=== PATIENT | male | born 1980 | race Caucasian/White ===

== ENCOUNTER 2021-02-17 03:46 | Inpatient (IN) | payer OTHER ==
[~2021-02-17] VITALS: Ht 185.4 cm; Wt 89.4 kg
[2021-02-17 03:42] VITALS: BP 107/66
[2021-02-17] MEDS ORDERED: HEPARIN 25,000UTS/250ML PREMIX 250 ML IV PRN (04:30)
[2021-02-17] MEDS ORDERED: HEPARIN for IV BOLUS 10,000 UNIT/10 ML VIAL. IV PRN (04:30)
[2021-02-17] MEDS ORDERED: ASPI-630 PO (04:58)
[2021-02-17] MEDS ORDERED: ANTI-COAG MONITOR BY PHARMACY. MC PRN (05:00)
[2021-02-17 07:35] LABS: BASO % 1 % (0-3); EOS # 0.1 x10^3/uL (0.0-0.7); EOS % 2 % (0-3); HEMATOCRIT 38.7 % (39.0-53.0); HEMOGLOBIN 13.4 g/dL (13.0-17.5); LYMPH # 2.2 x10^3/uL (1.0-4.8); LYMPH % 39 % (24-48); MEAN CORPUSCULAR HEMOGLOBIN 32 pg (25-35); MEAN CORPUSCULAR HGB CONC 35 g/dL (31-37); MEAN CORPUSCULAR VOLUME 93 fL (79-100); MONO # 0.4 x10^3/uL (0.0-1.1); MONO % 8 % (0-9); NEUT # 2.9 x10^3/uL (1.8-7.7); NEUT % 51 % (31-73); PLATELET COUNT 199 x10^3/uL (140-400); RED BLOOD COUNT 4.15 x10^6/uL (4.30-5.70); RED CELL DISTRIBUTION WIDTH 13.8 % (11.5-14.5); WHITE BLOOD COUNT 5.6 x10^3/uL (4.0-11.0)
[2021-02-17 07:50] VITALS: BP 110/69
[2021-02-17 07:58] LABS: ALBUMIN 3.5 g/dL (3.4-5.0); ALBUMIN/GLOBULIN RATIO 1.6 (1.0-1.7); CALCIUM 8.4 mg/dL (8.5-10.1); CREATININE 0.8 mg/dL (0.7-1.3); GFR 107.1; POTASSIUM 3.9 mmol/L (3.5-5.1); TOTAL BILIRUBIN 0.2 mg/dL (0.2-1.0); TOTAL PROTEIN 5.7 g/dL (6.4-8.2)
[2021-02-17 08:00] LABS: CHOLESTEROL/HDL RATIO 3.3
[2021-02-17] MEDS ORDERED: ASPIRIN CHEWABLE 81 MG TABLET. PO SCH (09:00)
--- NOTE | 2021-02-17 10:07 | HP ---
ADMIT DATE: 02/17/2021 HISTORY OF PRESENT ILLNESS: The patient is a 40-year-old male patient who presented to the Emergency Room of [facility] with a complaint of palpitation. He stated it has been going on for the last 2 days, as he woke up in the morning with feeling of racing heart and skipped beats. He also complained of chest discomfort with some shortness of breath, but denied actual chest pain. Denied any nausea, vomiting, diaphoresis. He denied any recent trauma, travel, illnesses, fevers, dysuria, hematuria, blood in stool or diarrhea. 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 According to him, he was diagnosed with atrial fibrillation back in 2016. At that time, he refused to go on any blood thinners at the [place] and has been taking aspirin initially intermittently, although recently has been taking it on a regular basis. He had also myocardial infarction in 2018, for which he underwent a cardiac catheterization at [facility] in [place]. He said that, although there was narrowing, no stents were deployed at that time. PAST SURGICAL HISTORY: Significant for tonsillectomy, left heart catheterization and wisdom teeth extraction. ALLERGIES: He has no known drug allergies. MEDICATIONS: He is currently on only aspirin. FAMILY HISTORY: He has 2 brothers and 3 sisters, all older, but does not know much about them. His father at age of 72 because of hypertension and myocardial infarction. His mother at the age of 68 due to throat cancer. SOCIAL HISTORY: He is engaged. He has 3 daughters from a previous marriage. He smokes a pack a day, drinks alcohol occasionally and also smokes marijuana. 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 REVIEW OF SYSTEMS: As per history of present illness. On arrival to the Emergency Room, the patient looked well and was clearly in no apparent respiratory distress. According to the ER physician, the patient was in atrial fibrillation with rapid ventricular response. Apparently, he was given a loading dose of diltiazem and started on heparin and was transferred to [facility] for further evaluation and treatment. PAST MEDICAL HISTORY: Significant for paroxysmal atrial fibrillation, coronary artery disease, status post myocardial infarction. LABORATORY DATA: His lab work, done at [facility], showed that his white cell count was 7700, hemoglobin 14.6, hematocrit 42, MCV 94 and platelet count 213,000. Serum sodium 147, potassium 3.4, chloride 110, bicarbonate 27, anion gap of 10, BUN 14, creatinine 1.2. Estimated GFR was 67 mL per minute. His glucose was 164, calcium was 9, magnesium was 1.9. Troponin was less than 0.017. His prothrombin time, INR, aPTT and D-dimer are all normal. His chest x-ray showed that the cardiac silhouette is unremarkable. The lungs are clear bilaterally. The costophrenic sulci are clear and well demarcated. ASSESSMENT: 1. In summary, this is a 40-year-old male patient with a history of paroxysmal atrial fibrillation. 2. Coronary artery disease, status post myocardial infarction, although no stents were deployed on his cardiac catheterization in 2018 in [place], [place]. I will check his fasting lipid profile and TSH and also another set of cardiac enzyme and we will decide the further management accordingly. PLAN: To continue with the heparin drip, continue with the aspirin. We have consulted the Cardiology team and will decide further management accordingly. ANATOLIY DR: Demetrio TID: [id number]
[2021-02-17 10:56] VITALS: BP 100/74
--- NOTE | 2021-02-17 12:17 | NUR ---
SS following for discharge planning. SS reviewed pt chart and discussed with pt RN. Pt is from home with family and is currently on room air. Cardiology following. Heparin drip. ECHO today. SS will continue to follow for discharge planning.
--- NOTE | 2021-02-17 12:28 | PDOC2 ---
EBENEZER WHITE FAST FOOD SHIFT SUPERVISOR 02/17/21 1228: CARDIAC CONSULT DATE OF CONSULT Date of Consult DATE: 02/17/21 TIME: 12:00 REASON FOR CONSULT Reason for Consult: AFIB RVR REFERRING PHYSICIAN Referring Physician: Jose Ramon SOURCE Source: Chart review, Patient HISTORY OF PRESENT ILLNESS HISTORY OF PRESENT ILLNESS This is a pleasant 40 yo male admitted for complains of palpitations. Initially he was at [facility] and transferred here for further workup up. He was having palpitations at home and at times feeling dizzy. He eventually had some tightness to his neck area as well but no nause or vomiting. He does have skipping beats and intermittent palpitations but yesterday it was sutained. No passing out, nor hx of VTE and no hx of CVA nor any bleeding issues. He takes ASA but denies taking any rate controlling agents. He does have hx of AFIB in 2016 and was discussed about ablation but decided not to pursue. He then was told he had some blockage in his coronary arteries mild in 2018 and no stents or PTCA was done. Denies any HTN, HLP. No recreational drug use but does smoke tobacco. No prior covid-19 nor exposure and has not had a vaccines. He is from [place] and recently moved here for job and to be with his children last yr. PAST MEDICAL HISTORY Cardiovascular: AFIB, CAD Pulmonary: Pneumonia CENTRAL NERVOUS SYSTEM: Other (No pertinent history) GI: GERD Heme/Onc: No pertinent hx Hepatobiliary: No pertinent hx Psych: No pertinent hx Musculoskeletal: Osteoarthritis Rheumatologic: No pertinent hx Infectious disease: No pertinent hx ENT: No pertinent hx Renal/: No pertinent hx Endocrine: No pertinent hx Dermatology: No pertinent hx PAST SURGICAL HISTORY Past Surgical History: Tonsillectomy, Other (teeth extraction) FAMILY HISTORY Family History: Coronary Artery Disease (father at 35), Other (rAAA/father) SOCIAL HISTORY Smoke: 1 pack per day ALCOHOL: occassional Drugs: None Lives: with Family CURRENT MEDICATIONS CURRENT MEDICATIONS Current Medications Medications (Trade) Dose Ordered Sig/Amanda Route PRN Reason Start Time Stop Time Status Last Admin Dose Admin Heparin Sodium/ Dextrose 250 ml @ 0 mls/hr CONT PRN IV PER PROTOCOL 02/17/21 04:30 02/17/21 06:25 Info (Anti-Coagulation Monitoring By Pharmacy) 1 each PRN DAILY PRN MC PER PROTOCOL 02/17/21 05:00 02/17/21 05:23 ALLERGIES ALLERGIES: Coded Allergies: No Known Drug Allergies (Unverified , 02/17/21) PT VERBALIZED NO KNOWN DRUG ALLERGIES ROS Review of System 14 point ROS evaluated with pertinent positives noted per HPI PHYSICAL EXAM General: Alert, Oriented X3, Cooperative, No acute distress HEENT: Atraumatic, Mucous membr. moist/pink Lungs: Clear to auscultation, Normal air movement Heart: Regular rate (SR), Normal S1, Normal S2, No murmurs Abdomen: Soft, No tenderness Extremities: No cyanosis, No edema Skin: No breakdown, No significant lesion Neuro: Normal speech, Sensation intact Psych/Mental Status: Mental status NL, Mood NL MUSCULOSKELETAL: Osteoarthritic changes both hands VITALS/I&O VITALS/I&O: Vital Signs Date Time Temp Pulse Resp B/P (MAP) Pulse Ox O2 Delivery O2 Flow Rate FiO2 02/17/21 10:56 98.4 58 18 100/74 (83) 98 Room Air 98.4 I & O 02/16/21 02/16/21 02/17/21 15:00 23:00 07:00 Intake Total 0 ml Balance 0 ml LABS Lab: Laboratory Tests Test 02/17/21 07:10 White Blood Count 5.6 x10^3/uL (4.0-11.0) Red Blood Count 4.15 x10^6/uL (4.30-5.70) L Hemoglobin 13.4 g/dL (13.0-17.5) Hematocrit 38.7 % (39.0-53.0) L Mean Corpuscular Volume 93 fL (79-100) Mean Corpuscular Hemoglobin 32 pg (25-35) Mean Corpuscular Hemoglobin Concent 35 g/dL (31-37) Red Cell Distribution Width 13.8 % (11.5-14.5) Platelet Count 199 x10^3/uL (140-400) Neutrophils (%) (Auto) 51 % (31-73) Lymphocytes (%) (Auto) 39 % (24-48) Monocytes (%) (Auto) 8 % (0-9) Eosinophils (%) (Auto) 2 % (0-3) Basophils (%) (Auto) 1 % (0-3) Neutrophils # (Auto) 2.9 x10^3/uL (1.8-7.7) Lymphocytes # (Auto) 2.2 x10^3/uL (1.0-4.8) Monocytes # (Auto) 0.4 x10^3/uL (0.0-1.1) Eosinophils # (Auto) 0.1 x10^3/uL (0.0-0.7) Basophils # (Auto) 0.0 x10^3/uL (0.0-0.2) Heparin Anti-Xa Act, Unfractionated 0.79 IU/mL (0.30-0.70) H Sodium Level 150 mmol/L (136-145) H Potassium Level 3.9 mmol/L (3.5-5.1) Chloride Level 113 mmol/L (98-107) H Carbon Dioxide Level 29 mmol/L (21-32) Anion Gap 8 (6-14) Blood Urea Nitrogen 15 mg/dL (8-26) Creatinine 0.8 mg/dL (0.7-1.3) Estimated GFR (Cockcroft-Gault) 107.1 BUN/Creatinine Ratio 19 (6-20) Glucose Level 99 mg/dL (70-99) Calcium Level 8.4 mg/dL (8.5-10.1) L Total Bilirubin 0.2 mg/dL (0.2-1.0) Aspartate Amino Transferase (AST) 18 U/L (15-37) Alanine Aminotransferase (ALT) 20 U/L (16-63) Alkaline Phosphatase 50 U/L (46-116) Troponin I Quantitative < 0.017 ng/mL (0.000-0.055) Total Protein 5.7 g/dL (6.4-8.2) L Albumin 3.5 g/dL (3.4-5.0) Albumin/Globulin Ratio 1.6 (1.0-1.7) Triglycerides Level 58 mg/dL (0-150) Cholesterol Level 147 mg/dL (0-200) LDL Cholesterol, Calculated 91 mg/dL (0-100) VLDL Cholesterol, Calculated 12 mg/dL (0-40) Non-HDL Cholesterol Calculated 103 mg/dL (0-129) HDL Cholesterol 44 mg/dL (40-60) Cholesterol/HDL Ratio 3.3 Thyroid Stimulating Hormone (TSH) 1.601 uIU/mL (0.358-3.74) Laboratory Tests 02/17/21 07:10 Laboratory Tests 02/17/21 07:10 ASSESSMENT/PLAN ASSESSMENT/PLAN 1. AFIB RVR; paroxysmal by hx. Converted to SR. 2. Tobaccoism 3. CAD: no prior PCI 4. Family hx of premature CAD and AAA Recommendations 1. ASA. DC heparin. [id number] is 1. ASA vs eliquis pending TTE result 2. TSH 3. Start on statin. Start on low dose toprol and note BP response 4. MCOT to note burden and guide further therapy 5. Will arrange for outpt ischemic w/u 6. He will also need future abd sono given his family hx of AAA 7. Establish cardiology follow up and will provide referral for MERLYN HERNANDEZ MD 02/17/21 1803: CARDIAC CONSULT ASSESSMENT/PLAN ASSESSMENT/PLAN The patient was seen and interviewed as well as examined at the bedside. The chart was reviewed. The case was discussed. Agree with the plan of care. EBENEZER WHITE APRN Feb 17, 2021 12:28 MERLYN STALEY MD Feb 17, 2021 18:03
[2021-02-17] MEDS ORDERED: METO-239 PO (14:32)
[2021-02-17] MEDS ORDERED: ATOR10TA60 PO (14:32)
[2021-02-17] MEDS ORDERED: ASPIRIN ENTERIC COATED 325 MG TABLET.DR. PO SCH (15:00)
[2021-02-17] MEDS ORDERED: METOPROLOL SUCC 24HR ER 25 MG TAB.ER.24H. PO SCH (15:00)
[2021-02-17 15:40] VITALS: BP 100/74
[2021-02-17] MEDS ORDERED: ASPI325T8 PO (15:45)
--- NOTE | 2021-02-17 16:00 | NUR ---
DISCHARGE INSTRUCTIONS GIVEN, QUESTIONS AND CONCERNS ANSWERED, PATIENT VERBALIZED UNDERSTANDING OF DISCHARGE INFORMATION INCLUDING TAKING ALL MEDICATIONS INSTRUCTED AND FOLLOWING UP WITH HIS PRIMARY PROVIDER AND DR. STALEY INSTRUCTED, EVENT MONITOR APPLIED TO PATIENTS' LEFT UPPER CHEST PRIOR TO DISCHARGE PER CHARGE NURSE ON THE UNIT, PATIENT ENCOURAGED TO VOICE ANY QUESTIONS/CONCERNS, PATIENT DENIED HE HAS STATED THAT HE HAS HAD TO USE EVENT MONITORS BEFORE.
--- NOTE | 2021-02-17 16:50 | NUR ---
PATIENT LEAVES THE UNIT PER W/C AND ALONGSIDE HIS SIGNIFICANT OTHER, EMOTIONAL SUPPORT GIVEN, FOLLOW UP APPOINTMENTS ENCOURAGED.
[2021-02-17] MEDS ORDERED: ATORVASTATIN CALCIUM 10 MG TABLET. PO SCH (21:00)
--- NOTE | 2021-02-18 08:36 | CARD ---
MR#: [id number] Date of Study: 02/17/2021 Ordering Physician: EBENEZER WHITE, Referring Physician: EBENEZER WHITE Tech: Grace Hernandez [facility] APPROVED REPORT EXAM: Two-dimensional and M-mode echocardiogram with Doppler and color Doppler. Other Information Quality : AverageHR: 86bpm Rhythm : NSR INDICATION Cardiac Disease: CAD Chest Pain 2D DIMENSIONS RVDd4.2 (2.9-3.5cm)Left Atrium(2D)3.5 (1.6-4.0cm) IVSd1.1 (0.7-1.1cm)Aortic Root(2D)3.3 (2.0-3.7cm) LVDd4.5 (3.9-5.9cm)LVOT Diameter2.5 (1.8-2.4cm) PWd1.0 (0.7-1.1cm)LVDs3.4 (2.5-4.0cm) FS (%) 25.2 %SV45.7 ml LVEF(%)49.9 (>50%) Aortic Valve AoV Peak Bin.112.8cm/sAoV VTI23.9cm AO Peak GR.5.1mmHgLVOT Peak Bin.105.6cm/s AO Mean GR.3mmHgAVA (VMAX)4.57cm2 Mitral Valve MV E Rkibgapj23.4cm/sMV DECEL [id number] MV A Ebpsepie48.4cm/sE/A Ratio1.5 Pulmonary Valve PV Peak Hsdsgvvj871.3cm/s Tricuspid Valve TR P. Badjxtml147ch/sTR Peak Gr.13mmHg LEFT VENTRICLE The left ventricle is normal size. There is normal left ventricular wall thickness. The left ventricu lar systolic function is normal and the ejection fraction is within normal range. Estimated ejection fraction 60%. There is normal LV segmental wall motion. Tissue Doppler imaging reveals mild left vent ricular diastolic dysfunction. RIGHT VENTRICLE The right ventricle is normal size. There is normal right ventricular wall thickness. The right ventr icular systolic function is normal. ATRIA The left atrium size is normal. The right atrium size is normal. The interatrial septum is intact wit h no evidence for an atrial septal defect or patent foramen ovale as noted on 2-D or Doppler imaging. AORTIC VALVE The aortic valve is normal in structure and function. Doppler and Color Flow revealed no significant aortic regurgitation. There is no significant aortic valvular stenosis. MITRAL VALVE The mitral valve is normal in structure and function. There is no evidence of mitral valve prolapse. There is no mitral valve stenosis. Doppler and Color-flow revealed mild mitral regurgitation. TRICUSPID VALVE The tricuspid valve is normal in structure and function. Doppler and Color Flow revealed trace tricus pid regurgitation. Estimated ejejction fraction 20 mmHg. There is no tricuspid valve stenosis. PULMONIC VALVE Doppler and Color Flow revealed no pulmonic valvular regurgitation. There is no pulmonic valvular nuria nosis. GREAT VESSELS The aortic root is normal in size. The ascending aorta is normal in size. The IVC is normal in size a nd collapses >50% with inspiration. PERICARDIAL EFFUSION There is no evidence of significant pericardial effusion. Critical Notification Critical Value: No <Conclusion> The left ventricular systolic function is normal and the ejection fraction is within normal range. E stimated ejection fraction 60%. There is normal LV segmental wall motion. Signed by : Mo Carranza, Electronically Approved : 02/18/2021 08:36:18
== END 2021-02-17 16:50 | disposition home or self-care (01) | DRG 310 ==
LOC: 2 NORTH 03:46
PROVIDERS: ADMIT Internal Medicine; ATTEND Internal Medicine
DX: I48.0 Paroxysmal atrial fibrillation (principal); F17.210 Nicotine dependence, cigarettes, uncomplicated; I25.10 Atherosclerotic heart disease of native coronary artery without angina pectoris; M19.90 Unspecified osteoarthritis, unspecified site; K21.9 Gastro-esophageal reflux disease without esophagitis; I25.2 Old myocardial infarction; Z79.82 Long term (current) use of aspirin; Z80.8 Family history of malignant neoplasm of other organs or systems; Z82.49 Family history of ischemic heart disease and other diseases of the circulatory system
CPT/HCPCS: 36415; 80053; 80061; 84443; 84484; 85025; 85520; 93306; 99406; J1644; G0378

== ENCOUNTER 2021-04-01 16:00 | Emergency (ER) | payer OTHER ==
[~2021-04-01 16:00] MED LIST: ASPI-630 PO; ASPI325T8 PO; ATOR10TA60 PO; METO-239 PO
== END 2021-04-01 17:16 | disposition left against medical advice (07) ==
LOC: ER 16:00
DX: R00.2 Palpitations (principal); Z53.21 Procedure and treatment not carried out due to patient leaving prior to being seen by health care provider